=== PATIENT | male | born 1980 | race Caucasian/White ===

== ENCOUNTER 2024-02-18 11:03 | Emergency (ER) | payer BC ==
[2024-02-18] MEDS ORDERED: Lidocaine 4% Patch TD SCH (12:00)
== END 2024-02-18 14:09 | disposition home or self-care (01) ==
LOC: CSHERS 11:03
DX: S82.451A Displaced comminuted fracture of shaft of right fibula, initial encounter for closed fracture (principal); I10 Essential (primary) hypertension; F17.210 Nicotine dependence, cigarettes, uncomplicated; F17.220 Nicotine dependence, chewing tobacco, uncomplicated; W10.9XXA Fall (on) (from) unspecified stairs and steps, initial encounter

== ENCOUNTER 2024-02-28 15:11 | Emergency (ER) | payer BC | END 2024-02-28 18:00 | disposition home or self-care (01) | LOC: CSHERS 15:11 | DX: M25.561 Pain in right knee (principal); I10 Essential (primary) hypertension; F17.290 Nicotine dependence, other tobacco product, uncomplicated; F17.220 Nicotine dependence, chewing tobacco, uncomplicated | CPT/HCPCS: 29505 ==

== ENCOUNTER 2024-07-09 15:16 | Outpatient (CLI) | payer BC ==
[2024-07-09 16:23] LABS: ALT (SGPT) 70 U/L (8-55); AST (SGOT) 40 U/L (5-34); Albumin 4.2 g/dL (3.5-5.0); Alkaline Phosphatase 59 U/L (40-110); Anion Gap 15 mmol/L (10-20); BUN (Urea Nitrogen) 10 mg/dL (8.9-20.6); Bilirubin, Direct 0.1 mg/dL (0.1-0.3); Bilirubin, Total 0.3 mg/dL (0.2-1.2); Calc. Creatinine Clearance 0 mL/min (70-130); Calcium 9.4 mg/dL (7.8-10.44); Carbon Dioxide 22 mmol/L (22-29); Chloride 105 mmol/L (98-107); Estimated GFR 101; Glucose 119 mg/dL (70-105); Potassium 4.1 mmol/L (3.5-5.1); Protein, Total 7.3 g/dL (6.0-8.3)
[2024-07-09 16:26] LABS: #Basophils 0.06 10x3/uL (0.0-0.2); #Eosinophils 0.27 10x3/uL (0.0-0.5); #Monocytes 0.65 10x3/uL (0.0-1.1); #Neutrophils 4.97 10x3/uL (1.5-8.4); %Basophils 0.7 % (0.0-2.0); %Eosinophils 3.2 % (0.0-6.0); %Lymphocytes 29.7 % (18.0-47.0); %Monocytes 7.6 % (0.0-10.0); %Neutrophils 58.4 % (40.0-75.0); Hematocrit 43.1 % (38.8-50.0); Hemoglobin 15.2 g/dL (13.5-17.5); Mean Corpuscular HGB CONC 35.3 g/dL (32.0-36.0); Mean Corpuscular Hemoglobin 31.3 pg (27.0-33.0); Mean Corpuscular Volume 88.9 fL (81.2-95.1); Mean Platelet Volume 10.2 fL (7.4-10.4); Platelet Count 281 10x3/uL (150-450); RBC Distribution Width 13.1 % (11.5-14.5); Red Blood Cell (RBC) Count 4.85 10x6/uL (4.32-5.72); White Blood Cell (WBC) Count 8.5 10x3/uL (3.5-10.5)
[2024-07-09 16:30] LABS: Sodium 139 mmol/L (136-145)
== END 2024-07-09 15:17 | disposition home or self-care (01) ==
LOC: CSHLAB 15:16
PROVIDERS: ATTEND Surgery
DX: Z01.818 Encounter for other preprocedural examination (principal); K82.8 Other specified diseases of gallbladder
CPT/HCPCS: 80048; 80076; 85025; 93005; 93010

== ENCOUNTER 2024-07-11 05:52 | Day surgery (SDC) | payer BC ==
[2024-07-09 15:40] VITALS: BMI 45.4
[2024-07-11] MEDS ORDERED: Indocyanine Green 25 MG/10 ML VIAL ONE (07:02)
[2024-07-11] MEDS ORDERED: Bupivacaine/Epinephrine 0.25% 30 ML VIAL ONE (07:02)
[2024-07-11] MEDS ORDERED: CEFAZOLIN 2 GM VIAL ONE (07:02)
[2024-07-11] MEDS ORDERED: PROPOFOL 20 ML ONE (07:19)
[2024-07-11] MEDS ORDERED: Rocuronium Bromide 10 MG/ML (10ML VIAL) ONE (07:19)
[2024-07-11] MEDS ORDERED: Lidocaine 1% PF 5 ML VIAL ONE (07:19)
[2024-07-11] MEDS ORDERED: fentaNYL 50 mcg/mL 1 mL Vial ONE ×2 (07:19→09:46)
[2024-07-11] MEDS ORDERED: Midazolam HCl 2 mg/2 ml Vial ONE (07:22)
[2024-07-11] MEDS ORDERED: Dexamethasone 20 MG/5 ML VIAL ONE (07:45)
[2024-07-11] MEDS ORDERED: Ondansetron PF 4 MG/2 ML Vial ONE ×2 (07:45→08:53)
[2024-07-11] MEDS ORDERED: SUGAMMADEX SODIUM 200 MG/2 ML VIAL ONE (08:04)
[2024-07-11] MEDS ORDERED: Ketorolac Tromethamine 30 MG (1 mL) VIAL ONE (08:05)
[2024-07-11] MEDS ORDERED: HYDROcodone/Acetaminophen 5/325 mg Tablet ONE (09:24)
== END 2024-07-11 10:15 | disposition home or self-care (01) ==
LOC: CSHSDC 05:52
PROVIDERS: ATTEND Surgery
PROC: 0FT44ZZ Resection of Gallbladder, Percutaneous Endoscopic Approach (ICD-10-PCS; principal; 2024-07-11)
DX: K81.1 Chronic cholecystitis (principal); K82.8 Other specified diseases of gallbladder; I10 Essential (primary) hypertension; E78.5 Hyperlipidemia, unspecified; F17.290 Nicotine dependence, other tobacco product, uncomplicated; G43.909 Migraine, unspecified, not intractable, without status migrainosus; Z98.52 Vasectomy status; Z90.89 Acquired absence of other organs; Z91.048 Other nonmedicinal substance allergy status; Z79.82 Long term (current) use of aspirin; Z79.899 Other long term (current) drug therapy
CPT/HCPCS: 88304; C1889; J1100; J1885; J2250; J2405; J2704; J3010; S2900